=== PATIENT | female | born 1990 | race Caucasian/White ===

== ENCOUNTER 2019-10-01 10:35 | Emergency (ER) | payer OTHER ==
[2019-10-01 10:41] VITALS: BP 133/83; PULSE 81; RESP 18; TEMP 98
[2019-10-01] MEDS ORDERED: CLINDAMYCIN 150 MG CAP PO STA (10:55)
[2019-10-01] MEDS ORDERED: IBUPROFEN 600 MG STARTER PACK 4 TAB BTL PO STA (10:55)
--- NOTE | 2019-10-01 11:02 | ED ---
Headache HPI - General Chief Complaint: Headache Stated Complaint: facial swelling Time Seen by Provider: 10/01/19 10:44 Source: RN notes reviewed, old records reviewed Mode of arrival: ambulatory Limitations: no limitations - History of Present Illness Initial Comments: This Patient is a pleasant 29-year-old female presents emergency department today with onset of left-sided facial swelling likely from an infection from her upper left incisor. She states that she has a mild headache with this as well. Patient reports that she's had a broken tooth for many years and woke up with increased pain today and noticed this swelling to the left cheek. She denies any trismus. She denies any foul taste or drainage in the mouth at this time. Patient states that she's had no history of diabetes or any resistant infections. She does have a history of ALLERGY to penicillin. Patient states that she has had no visual changes. - Related Data Previous Rx's Medication Instructions Recorded Clindamycin HCl 300 mg PO Q6H #40 cap 10/01/19 Allergies Allergy/AdvReac Type Severity Reaction Status Date / Time Penicillins Allergy Rash/Hives Verified 10/01/19 10:41 Review of Systems ROS Statement: Those systems with pertinent positive or pertinent negative responses have been documented in the HPI. ROS Other: All systems not noted in ROS Statement are negative. Past Medical History Past Medical History: No Reported History History of Any Multi-Drug Resistant Organisms: None Reported Past Surgical History: Appendectomy Past Psychological History: No Psychological Hx Reported Smoking Status: Never smoker Past Alcohol Use History: None Reported Past Drug Use History: None Reported General Exam - General Exam Comments Initial Comments: 29-year-old female. Alert and oriented. Limitations: no limitations General appearance: alert, in no apparent distress Head exam: Present: atraumatic, normocephalic, normal inspection Eye exam: Present: normal appearance, PERRL, EOMI. Absent: scleral icterus, conjunctival injection, periorbital swelling ENT exam: Present: normal exam, TM's normal bilaterally, other (Patient has broken tooth #12 and 13. Evidence of erythema around the gumline. No palpable abscess, and this time.). Absent: normal oropharynx Neck exam: Present: normal inspection. Absent: tenderness, meningismus, lymphadenopathy Respiratory exam: Present: normal lung sounds bilaterally. Absent: respiratory distress, wheezes, rales, rhonchi, stridor Cardiovascular Exam: Present: regular rate, normal rhythm, normal heart sounds. Absent: systolic murmur, diastolic murmur, rubs, gallop, clicks GI/Abdominal exam: Present: soft, normal bowel sounds. Absent: distended, tenderness, guarding, rebound, rigid Back exam: Present: normal inspection Neurological exam: Present: alert, oriented X3, CN II-XII intact Psychiatric exam: Present: normal affect, normal mood Skin exam: Present: warm, dry, intact, normal color. Absent: rash Course Vital Signs 10/01/19 10:36 Temperature 98.0 F Pulse Rate 81 Respiratory 18 Rate Blood Pressure 133/83 O2 Sat by Pulse 99 Oximetry Medical Decision Making - Medical Decision Making Patient is a 29-year-old female who presents emergency department today for left cheek swelling and pain likely setting from infection from left upper tooth infection. Patient reports that she has a broken tooth for 2 years and woke up today with swelling. She does have some tenderness to palpation of the left maxillary area. She does have broken tooth #13 and 14. There is no drainable abscess at this time. Discussed starting the Patient on clindamycin, and temperature medication. I advised Patient on close follow-up with dentist. Given a referral for dental clinic. Disposition Clinical Impression: Dental infection Disposition: HOME SELF-CARE Condition: Good Instructions (If sedation given, give patient instructions): Dental Abscess (ED) Additional Instructions: [facility] [place] [address] [phone] (existing clients only) For new clients: [phone] 1st consult: $50 (includes Xrays) Usually 30% less then private dentist for visits after. [employer] Have to pay $50 for Xrays anmd rest is covered. [phone] Prescriptions: Clindamycin HCl 300 mg PO Q6H #40 cap Is patient prescribed a controlled substance at d/c from ED?: No Referrals: None,Stated [Primary Care Provider] - 1-2 days Time of Disposition: 11:00
== END 2019-10-01 11:20 | disposition home or self-care (01) ==
LOC: EC 10:35
DX: K04.7 Periapical abscess without sinus (principal); K03.81 Cracked tooth; Z88.0 Allergy status to penicillin
CPT/HCPCS: 99284

== ENCOUNTER 2019-10-20 10:33 | Emergency (ER) | payer OTHER ==
[2019-10-20 10:39] VITALS: BP 149/70; PULSE 97; RESP 18; TEMP 98.9
[2019-10-20] MEDS ORDERED: CLINDAMYCIN 150 MG CAP PO STA (10:52)
--- NOTE | 2019-10-20 10:54 | ED ---
General Adult HPI - General Chief complaint: Dental/Oral Stated complaint: tooth abscess Time Seen by Provider: 10/20/19 10:42 Source: patient, RN notes reviewed Mode of arrival: ambulatory Limitations: no limitations - History of Present Illness Initial comments: 29-year-old female presents to the emergency department for dental pain and facial swelling. Patient states that about 3 weeks ago she was seen here in the emergency room and started on antibiotics for dental pain. Patient states she did not follow up with her dentist as discussed. The patient took antibiotics and symptoms went away. However when she woke up today she had facial swelling again. Patient presents requesting antibiotics. She denies fevers or chills. Denies trismus. Denies sublingual edema. Denies neck stiffness.Patient has no other complaints at this time including shortness of breath, chest pain, abdominal pain, nausea or vomiting, headache, or visual changes. - Related Data Previous Rx's Medication Instructions Recorded Clindamycin HCl 300 mg PO Q6H #40 cap 10/01/19 Clindamycin [Cleocin] 450 mg PO Q8H 7 Days #63 cap 10/20/19 Allergies Allergy/AdvReac Type Severity Reaction Status Date / Time Penicillins Allergy Rash/Hives Verified 10/20/19 10:39 Review of Systems ROS Statement: Those systems with pertinent positive or pertinent negative responses have been documented in the HPI. ROS Other: All systems not noted in ROS Statement are negative. Past Medical History Past Medical History: No Reported History History of Any Multi-Drug Resistant Organisms: None Reported Past Surgical History: Appendectomy Past Psychological History: No Psychological Hx Reported Smoking Status: Never smoker Past Alcohol Use History: None Reported Past Drug Use History: None Reported General Exam Limitations: no limitations General appearance: alert, in no apparent distress Head exam: Present: atraumatic, normocephalic, normal inspection Eye exam: Present: normal appearance, PERRL, EOMI. Absent: scleral icterus, conjunctival injection, periorbital swelling ENT exam: Present: normal exam, mucous membranes moist, TM's normal bilaterally, normal external ear exam, other (Patient does have minimal facial edema on the left side of the face along the maxillary area). Absent: normal oropharynx (Patient has fractured tooth 12 with tendenress with palpation of tongue blade. There is no abscess with direct visualization or palpation along the gumline. No sublingual edema. No trismus.) Neck exam: Present: normal inspection, full ROM. Absent: tenderness, meningismus, lymphadenopathy Respiratory exam: Present: normal lung sounds bilaterally. Absent: respiratory distress, wheezes, rales, rhonchi, stridor Cardiovascular Exam: Present: regular rate, normal rhythm, normal heart sounds. Absent: systolic murmur, diastolic murmur, rubs, gallop, clicks Neurological exam: Present: alert Course Vital Signs 10/20/19 10:36 Temperature 98.9 F Pulse Rate 97 Respiratory 18 Rate Blood Pressure 149/70 O2 Sat by Pulse 98 Oximetry Medical Decision Making - Medical Decision Making Patient was again treated with clindamycin given her ALLERGY to penicillins however I discussed that we cannot keep putting her on this antibiotic as it can be hard on her stomach. Discussed that patient needs to follow-up with her dentist, this is imperative. Discussed to return here she gets worsening symptoms such as fevers or worsening edema. Disposition Clinical Impression: Dental infection Disposition: HOME SELF-CARE Condition: Good Instructions (If sedation given, give patient instructions): Dental Abscess (ED) Additional Instructions: Please take antibiotic as directed. Take Motrin and Tylenol for pain. Follow- up with dentist as soon as possible. Return here to the emergency room for any worsening symptoms such as worsening swelling or fevers. [facility] [id number] (existing clients only) New clients: [phone] 1st consult: $50 (includes XRs) Usually 30% less than private dentist for visits after. [employer] Have to pay $50 for Xrays and rest is covered [phone] Prescriptions: Clindamycin [Cleocin] 450 mg PO Q8H 7 Days #63 cap Is patient prescribed a controlled substance at d/c from ED?: No Referrals: None,Stated [Primary Care Provider] - 1-2 days Time of Disposition: 10:52
== END 2019-10-20 11:01 | disposition home or self-care (01) ==
LOC: EC 10:33
DX: K04.7 Periapical abscess without sinus (principal); S02.5XXA Fracture of tooth (traumatic), initial encounter for closed fracture; Z88.0 Allergy status to penicillin; X58.XXXA Exposure to other specified factors, initial encounter
CPT/HCPCS: 99282

== ENCOUNTER 2020-03-01 22:01 | Observation (INO) | payer OTHER ==
[2020-03-01] MEDS ORDERED: SODIUM CHLORIDE 0.9% 1,000 ML IV STA ×2 (22:22)
[2020-03-01] MEDS ORDERED: SODIUM CHLORIDE 0.9% 500 ML 500 ML IV STA (22:22)
[2020-03-01] MEDS ORDERED: KETOROLAC 15 MG/ML 1 ML VIAL IVP STA (22:23)
[2020-03-01] MEDS ORDERED: MORPHINE SULFATE 4 MG/ML SYRINGE IVP STA (22:36)
[2020-03-01 23:16] LABS: Basophils % (A) 0 %; Eosinophils % (A) 0 %; HCT 38.4 % (34.0-46.0); HGB 12.8 gm/dL (11.4-16.0); Lymphocytes # (A) 0.8 k/uL (1.0-4.8); Lymphocytes % (A) 4 %; MCHC 33.4 g/dL (31.0-37.0); MCV 89.8 fL (80.0-100.0); Mean Platelet Volume 7.3; Monocytes # (A) 0.3 k/uL (0-1.0); Monocytes % (A) 2 %; Neutrophils # (A) 19.3 k/uL (1.3-7.7); Neutrophils % (A) 94 %; Platelet Count 193 k/uL (150-450); RBC 4.28 m/uL (3.80-5.40); RDW 11.7 % (11.5-15.5); WBC 20.5 k/uL (3.8-10.6)
[2020-03-01 23:33] LABS: ALT 10 U/L (4-34); AST 18 U/L (14-36); African American GFR (CKD) >90 (>60 ml/min/1.73 sqM); Albumin 4.1 g/dL (3.5-5.0); Alkaline Phosphatase 70 U/L (38-126); Anion Gap 9 mmol/L; Blood Urea Nitrogen 13 mg/dL (7-17); Calcium 9.4 mg/dL (8.4-10.2); Carbon Dioxide 20 mmol/L (22-30); Chloride 107 mmol/L (98-107); Glucose 101 mg/dL (74-99); Magnesium 1.8 mg/dL (1.6-2.3); Non-African American GFR(CKD) >90 (>60 ml/min/1.73 sqM); Phosphorus 2.8 mg/dL (2.5-4.5); Potassium 3.8 mmol/L (3.5-5.1); Sodium 136 mmol/L (137-145); Total Bilirubin 1.6 mg/dL (0.2-1.3); Total Protein 7.3 g/dL (6.3-8.2)
--- NOTE | 2020-03-01 23:40 | ED ---
Abdominal Pain HPI - General Chief Complaint: Abdominal Pain Stated Complaint: Abd Pain, Bladder infection Time Seen by Provider: 03/01/20 22:10 Source: patient, RN notes reviewed, old records reviewed Mode of arrival: ambulatory Limitations: no limitations - History of Present Illness Initial Comments: this is a 29-year-old female DEL with fever and gross abdominal pain epigastric suprapubic abdominal pain periumbilical abdominal pain began diffuse without diarrhea. Patient was seen and diagnosed with UTI yesterday negative for coronavirus still having persistent fevers worsening abdominal pain today. No travel history or known sick contacts, appendix has been removed MD Complaint: abdominal pain -: days(s) Location: diffuse, epigastric, suprapubic Radiation: epigastric, suprapubic Migration to: no migration Severity: moderate Severity scale (1-10): 4 Quality: aching Consistency: constant Improves With: nothing Worsens With: nothing Context: sick contacts Associated Symptoms: nausea - Related Data Home Medications Medication Instructions Recorded Confirmed Ibuprofen [Motrin Ib] 400 mg PO ONCE PRN 03/01/20 03/01/20 Nitrofurantoin Macrocrystal 100 mg PO Q12H 03/01/20 03/01/20 [Nitrofurantoin] Allergies Allergy/AdvReac Type Severity Reaction Status Date / Time Penicillins Allergy Rash/Hives Verified 03/01/20 23:12 Review of Systems ROS Statement: Those systems with pertinent positive or pertinent negative responses have been documented in the HPI. ROS Other: All systems not noted in ROS Statement are negative. Past Medical History Past Medical History: No Reported History History of Any Multi-Drug Resistant Organisms: None Reported Past Surgical History: Appendectomy Past Psychological History: No Psychological Hx Reported Past Alcohol Use History: None Reported Past Drug Use History: None Reported General Exam Limitations: no limitations General appearance: alert, in no apparent distress, anxious Head exam: Present: atraumatic, normocephalic, normal inspection Eye exam: Present: normal appearance, PERRL, EOMI. Absent: scleral icterus, conjunctival injection, periorbital swelling ENT exam: Present: normal exam, mucous membranes moist Neck exam: Present: normal inspection. Absent: tenderness, meningismus, lymphad enopathy Respiratory exam: Present: normal lung sounds bilaterally. Absent: respiratory distress, wheezes, rales, rhonchi, stridor Cardiovascular Exam: Present: normal rhythm, tachycardia, normal heart sounds. Absent: systolic murmur, diastolic murmur, rubs, gallop, clicks GI/Abdominal exam: Present: soft, tenderness, guarding, normal bowel sounds. Absent: distended, rebound, rigid Extremities exam: Present: normal inspection, full ROM, normal capillary refill. Absent: tenderness, pedal edema, joint swelling, calf tenderness Back exam: Present: normal inspection Neurological exam: Present: alert, oriented X3, CN II-XII intact Psychiatric exam: Present: normal affect, normal mood Skin exam: Present: warm, dry, intact, normal color. Absent: rash Course Vital Signs 03/01/20 03/01/20 22:03 23:45 Temperature 99.2 F 101.2 F H Pulse Rate 118 H 92 Respiratory 18 16 Rate Blood Pressure 135/85 108/58 O2 Sat by Pulse 99 98 Oximetry - Reevaluation(s) Reevaluation #1: 03/01/20 23:40 medical records reviewed Reevaluation #2: 03/02/20 02:12 patient reevaluated still having escalating fever with abdominal pain Reevaluation #3: 03/02/20 02:12 atient informed results and questions answered Reevaluation #4: 03/02/20 02:12 patient without shortness of breath - Consultations Consultation #1: spoke with [facility] agree to admit this patient Medical Decision Making - Medical Decision Making 29 female DF for evaluation patient is persistent and significant in the ER with abdominal pain. Suspect possibly underlying coronavirus but she could've possibly urinary tract infection as was treated for urinary tract infection patient - Lab Data Result diagrams: 03/01/20 22:53 03/01/20 22:53 Lab Results 03/01/20 03/01/20 03/01/20 Range/Units 22:53 22:53 22:53 WBC 20.5 H (3.8-10.6) k/uL RBC 4.28 (3.80-5.40) m/uL Hgb 12.8 (11.4-16.0) gm/dL Hct 38.4 (34.0-46.0) % MCV 89.8 (80.0-100.0) fL MCH 30.0 (25.0-35.0) pg MCHC 33.4 (31.0-37.0) g/dL RDW 11.7 (11.5-15.5) % Plt Count 193 (150-450) k/uL MPV 7.3 Neutrophils % 94 % Lymphocytes % 4 % Monocytes % 2 % Eosinophils % 0 % Basophils % 0 % Neutrophils # 19.3 H (1.3-7.7) k/uL Lymphocytes # 0.8 L (1.0-4.8) k/uL Monocytes # 0.3 (0-1.0) k/uL Eosinophils # 0.0 (0-0.7) k/uL Basophils # 0.0 (0-0.2) k/uL Sodium 136 L (137-145) mmol/L Potassium 3.8 (3.5-5.1) mmol/L Chloride 107 (98-107) mmol/L Carbon Dioxide 20 L (22-30) mmol/L Anion Gap 9 mmol/L BUN 13 (7-17) mg/dL Creatinine 0.67 (0.52-1.04) mg/dL Est GFR (CKD-EPI)AfAm >90 (>60 ml/min/1.73 sqM) Est GFR (CKD-EPI)NonAf >90 (>60 ml/min/1.73 sqM) Glucose 101 H (74-99) mg/dL Calcium 9.4 (8.4-10.2) mg/dL Phosphorus 2.8 (2.5-4.5) mg/dL Magnesium 1.8 (1.6-2.3) mg/dL Total Bilirubin 1.6 H (0.2-1.3) mg/dL AST 18 (14-36) U/L ALT 10 (4-34) U/L Alkaline Phosphatase 70 (38-126) U/L Lactate Dehydrogenase (313-618) U/L C-Reactive Protein (<10.0) mg/L Total Protein 7.3 (6.3-8.2) g/dL Albumin 4.1 (3.5-5.0) g/dL Lipase (23-300) U/L Urine Color Urine Appearance (Clear) Urine pH (5.0-8.0) Ur Specific [place] (1.001-1.035) Urine Protein (Negative) Urine Glucose (UA) (Negative) Urine Ketones (Negative) Urine Blood (Negative) Urine Nitrite (Negative) Urine Bilirubin (Negative) Urine Urobilinogen (<2.0) mg/dL Ur Leukocyte Esterase (Negative) Urine RBC (0-5) /hpf Urine WBC (0-5) /hpf Ur Squamous Epith Cells (0-4) /hpf Amorphous Sediment (None) /hpf Urine Bacteria (None) /hpf Urine Mucus (None) /hpf Urine HCG, Qual (Not Detectd) Coronavirus (PCR) Not Detected (Not Detectd) 03/01/20 03/01/20 03/01/20 Range/Units 22:53 23:53 23:53 WBC (3.8-10.6) k/uL RBC (3.80-5.40) m/uL Hgb (11.4-16.0) gm/dL Hct (34.0-46.0) % MCV (80.0-100.0) fL MCH (25.0-35.0) pg MCHC (31.0-37.0) g/dL RDW (11.5-15.5) % Plt Count (150-450) k/uL MPV Neutrophils % % Lymphocytes % % Monocytes % % Eosinophils % % Basophils % % Neutrophils # (1.3-7.7) k/uL Lymphocytes # (1.0-4.8) k/uL Monocytes # (0-1.0) k/uL Eosinophils # (0-0.7) k/uL Basophils # (0-0.2) k/uL Sodium (137-145) mmol/L Potassium (3.5-5.1) mmol/L Chloride (98-107) mmol/L Carbon Dioxide (22-30) mmol/L Anion Gap mmol/L BUN (7-17) mg/dL Creatinine (0.52-1.04) mg/dL Est GFR (CKD-EPI)AfAm (>60 ml/min/1.73 sqM) Est GFR (CKD-EPI)NonAf (>60 ml/min/1.73 sqM) Glucose (74-99) mg/dL Calcium (8.4-10.2) mg/dL Phosphorus (2.5-4.5) mg/dL Magnesium (1.6-2.3) mg/dL Total Bilirubin (0.2-1.3) mg/dL AST (14-36) U/L ALT (4-34) U/L Alkaline Phosphatase (38-126) U/L Lactate Dehydrogenase 576 (313-618) U/L C-Reactive Protein 169.0 H (<10.0) mg/L Total Protein (6.3-8.2) g/dL Albumin (3.5-5.0) g/dL Lipase (23-300) U/L Urine Color Yellow Urine Appearance Cloudy H (Clear) Urine pH 6.0 (5.0-8.0) Ur Specific [place] 1.030 (1.001-1.035) Urine Protein 1+ H (Negative) Urine Glucose (UA) Negative (Negative) Urine Ketones 2+ H (Negative) Urine Blood Trace H (Negative) Urine Nitrite Negative (Negative) Urine Bilirubin Negative (Negative) Urine Urobilinogen <2.0 (<2.0) mg/dL Ur Leukocyte Esterase Moderate H (Negative) Urine RBC 2 (0-5) /hpf Urine WBC 16 H (0-5) /hpf Ur Squamous Epith Cells 2 (0-4) /hpf Amorphous Sediment Rare H (None) /hpf Urine Bacteria Rare H (None) /hpf Urine Mucus Moderate H (None) /hpf Urine HCG, Qual Not Detected (Not Detectd) Coronavirus (PCR) (Not Detectd) 03/01/20 Range/Units 23:53 WBC (3.8-10.6) k/uL RBC (3.80-5.40) m/uL Hgb (11.4-16.0) gm/dL Hct (34.0-46.0) % MCV (80.0-100.0) fL MCH (25.0-35.0) pg MCHC (31.0-37.0) g/dL RDW (11.5-15.5) % Plt Count (150-450) k/uL MPV Neutrophils % % Lymphocytes % % Monocytes % % Eosinophils % % Basophils % % Neutrophils # (1.3-7.7) k/uL Lymphocytes # (1.0-4.8) k/uL Monocytes # (0-1.0) k/uL Eosinophils # (0-0.7) k/uL Basophils # (0-0.2) k/uL Sodium (137-145) mmol/L Potassium (3.5-5.1) mmol/L Chloride (98-107) mmol/L Carbon Dioxide (22-30) mmol/L Anion Gap mmol/L BUN (7-17) mg/dL Creatinine (0.52-1.04) mg/dL Est GFR (CKD-EPI)AfAm (>60 ml/min/1.73 sqM) Est GFR (CKD-EPI)NonAf (>60 ml/min/1.73 sqM) Glucose (74-99) mg/dL Calcium (8.4-10.2) mg/dL Phosphorus (2.5-4.5) mg/dL Magnesium (1.6-2.3) mg/dL Total Bilirubin (0.2-1.3) mg/dL AST (14-36) U/L ALT (4-34) U/L Alkaline Phosphatase (38-126) U/L Lactate Dehydrogenase (313-618) U/L C-Reactive Protein (<10.0) mg/L Total Protein (6.3-8.2) g/dL Albumin (3.5-5.0) g/dL Lipase 13 L (23-300) U/L Urine Color Urine Appearance (Clear) Urine pH (5.0-8.0) Ur Specific [place] (1.001-1.035) Urine Protein (Negative) Urine Glucose (UA) (Negative) Urine Ketones (Negative) Urine Blood (Negative) Urine Nitrite (Negative) Urine Bilirubin (Negative) Urine Urobilinogen (<2.0) mg/dL Ur Leukocyte Esterase (Negative) Urine RBC (0-5) /hpf Urine WBC (0-5) /hpf Ur Squamous Epith Cells (0-4) /hpf Amorphous Sediment (None) /hpf Urine Bacteria (None) /hpf Urine Mucus (None) /hpf Urine HCG, Qual (Not Detectd) Coronavirus (PCR) (Not Detectd) - Radiology Data Radiology results: report reviewed (CT head and pelvis is negative for acute disease), image reviewed Disposition Clinical Impression: Abdominal pain, Fever Narrative: ro COVID Disposition: ADMITTED IP TO THIS [facility] Condition: Fair Is patient prescribed a controlled substance at d/c from ED?: No Referrals: None,Stated [Primary Care Provider] - 1-2 days
[2020-03-01] MEDS ORDERED: ONDANSETRON 4 MG/2 ML VIAL IVP STA (23:50)
[2020-03-02 00:09] LABS: Amorphous Sediment,Urine Rare /hpf; Appearance,Urine Cloudy (Clear); Bacteria,Urine Rare /hpf; Bilirubin,Urine Negative (Negative); Blood,Urine Trace (Negative); Color,Urine Yellow; Glucose,Urine (UA) Negative (Negative); Ketones,Urine 2+ (Negative); Leukocyte Esterase,Urine Moderate (Negative); Mucus,Urine Moderate /hpf; Nitrite,Urine Negative (Negative); Protein,Urine 1+ (Negative); RBC,Urine 2 /hpf (0-5); Squamous Epithelial Cell,Urine 2 /hpf (0-4); Urobilinogen,Urine <2.0 mg/dL (<2.0); WBC,Urine 16 /hpf (0-5)
[2020-03-02] MEDS ORDERED: ACETAMINOPHEN TAB 500 MG TAB PO STA (00:09)
[2020-03-02] MEDS ORDERED: MORPHINE SULFATE 4 MG/ML SYRINGE IVP STA ×2 (01:30→04:23)
[2020-03-02] MEDS ORDERED: SODIUM CHLORIDE 0.9% 1,000 ML IV STA (01:31)
--- NOTE | 2020-03-02 01:54 | CT ---
EXAM: CT Abdomen and Pelvis With Intravenous Contrast CLINICAL HISTORY: abd pain with n+v. TECHNIQUE: Axial computed tomography images of the abdomen and pelvis with intravenous contrast. CTDI is 37.17 mGy and DLP is 1688.2 mGy-cm. This CT exam was performed using one or more of the following dose reduction techniques: automated exposure control, adjustment of the mA and/or kV according to patient size, and/or use of iterative reconstruction technique. COMPARISON: No relevant prior studies available. FINDINGS: Lung bases: Unremarkable. No mass. No consolidation. ABDOMEN: Liver: Unremarkable. No mass. Gallbladder and bile ducts: Unremarkable. No calcified stones. No ductal dilation. Pancreas: Unremarkable. No mass. No ductal dilation. Spleen: Unremarkable. No splenomegaly. Adrenals: Unremarkable. No mass. Kidneys and ureters: 1 mm nonobstructing lower pole left renal stone on series 201 image 37. Stomach and bowel: Unremarkable. No obstruction. No mucosal thickening. PELVIS: Appendix: Appendectomy sutures. Bladder: Unremarkable. No mass. Reproductive: Unremarkable as visualized. ABDOMEN and PELVIS: Intraperitoneal space: Unremarkable. No free air. No significant fluid collection. Bones/joints: No acute fracture. No dislocation. Soft tissues: Unremarkable. Vasculature: Unremarkable. No abdominal aortic aneurysm. Lymph nodes: Unremarkable. No enlarged lymph nodes. IMPRESSION: No acute findings 1 mm nonobstructing left renal stone
[2020-03-02] MEDS ORDERED: ACETAMINOPHEN TAB 325 MG TAB PO PRN (02:02)
[2020-03-02] MEDS ORDERED: ALBUTEROL NEBULIZED 2.5 MG/3 ML INHALATION PRN (02:02)
[2020-03-02 02:30] LABS: Magnesium 1.8 mg/dL (1.6-2.3)
--- NOTE | 2020-03-02 02:45 | XR ---
EXAM: XR Chest, 1 View CLINICAL HISTORY: ITS.REASON XR Reason: Suspected COVID-19 pneumonia TECHNIQUE: Frontal view of the chest. COMPARISON: No relevant prior studies available. FINDINGS: Lungs: Mild artifact from breast tissue over the lower lungs. No definite acute infiltrate identified. Pleural space: Unremarkable. No pneumothorax. Heart: Unremarkable. No cardiomegaly. Mediastinum: Unremarkable. Bones/joints: Unremarkable. IMPRESSION: Mild artifact from breast tissue over the lower lungs. No definite acute infiltrate identified.
[2020-03-02] MEDS: KETOROLAC 15 MG/ML 1 ML VIAL IVP SCH ×4 (06:13→23:25)
[2020-03-02] MEDS: ENOXAPARIN 40 MG/0.4 ML SYRINGE SQ SCH (07:56)
[2020-03-02 09:39] LABS: Ferritin 87.9 ng/mL (10.0-291.0)
[2020-03-02] MEDS ORDERED: HYDROcodone/APAP 7.5-325MG 1 EACH TAB PO PRN (14:54)
--- NOTE | 2020-03-02 15:52 | P.HPIM ---
History of Present Illness 29-year-old the pleasant female came in with the complaints of pressure in the suprapubic area which is worsened pretty much by everything with movement with food. Patient pain was severe much better now. Patient was seen in urgent care and patient was told she has urinary tract infection and was started on nitrofurantoin patient does have fevers chills. Patient had CT of the abdomen which showed nephrolithiasis on the side with a 1 mm stone which is nonobstructive. Patient did complain of dysuria today morning. Patient urine is bit abnormal although patient is partially treated with nitrofurantoin she never had UTIs in the past and did not have any previous urine cultures from the past. Patient also had a fever and diarrhea. Review of Systems REVIEW OF SYSTEMS: CONSTITUTIONAL: As mentioned in HPI HEENT: No recent visual problems or hearing problems. Denied any sore throat. CARDIOVASCULAR: No chest pain, orthopnea, PND, no palpitations, no syncope. PULMONARY: No shortness of breath, no cough, no hemoptysis. GASTROINTESTINAL: As mentioned in HPI NEUROLOGICAL: No headaches, no weakness, no numbness. HEMATOLOGICAL: Denies any bleeding or petechiae. GENITOURINARY: Denies any burning micturition, frequency, or urgency. MUSCULOSKELETAL/RHEUMATOLOGICAL: Denies any joint pain, swelling, or any muscle pain. ENDOCRINE: Denies any polyuria or polydipsia. The rest of the 14-point review of systems is negative. Past Medical History Past Medical History: No Reported History History of Any Multi-Drug Resistant Organisms: None Reported Past Surgical History: Appendectomy Past Anesthesia/Blood Transfusion Reactions: No Reported Reaction Past Psychological History: No Psychological Hx Reported Smoking Status: Never smoker Past Alcohol Use History: None Reported Past Drug Use History: None Reported Medications and Allergies Home Medications Medication Instructions Recorded Confirmed Type Ibuprofen [Motrin Ib] 400 mg PO ONCE PRN 03/01/20 03/01/20 History Nitrofurantoin Macrocrystal 100 mg PO Q12H 03/01/20 03/01/20 History [Nitrofurantoin] Allergies Allergy/AdvReac Type Severity Reaction Status Date / Time Penicillins Allergy Rash/Hives Verified 03/01/20 23:12 Physical Exam Vitals: Vital Signs Temp Pulse Pulse Resp BP BP Pulse Ox 03/02/20 14:32 97.9 F 98 19 93/57 98 03/02/20 08:12 96 03/02/20 07:00 98.2 F 66 16 89/51 98 03/02/20 04:31 98.1 F 82 18 96/60 99 03/02/20 03:20 98.7 F 91 18 121/72 97 03/02/20 02:20 98.9 F 95 18 116/68 97 03/02/20 01:00 100 F H 92 16 112/63 97 03/01/20 23:45 101.2 F H 92 16 108/58 98 03/01/20 22:03 99.2 F 118 H 18 135/85 99 Intake and Output 03/02/20 03/02/20 03/02/20 06:59 14:59 22:59 Other: # Voids 1 3 Weight 106.594 kg PHYSICAL EXAMINATION: GENERAL: The patient is alert and oriented x3, not in any acute distress. Well developed, well nourished. HEENT: Pupils are round and equally reacting to light. EOMI. No scleral icterus. No conjunctival pallor. Normocephalic, atraumatic. No pharyngeal erythema. No thyromegaly. CARDIOVASCULAR: S1 and S2 present. No murmurs, rubs, or gallops. PULMONARY: Chest is clear to auscultation, no wheezing or crackles. ABDOMEN: Soft, appropriately tenderness with some redness in the skin folds, nondistended, normoactive bowel sounds. No palpable organomegaly. MUSCULOSKELETAL: No joint swelling or deformity. EXTREMITIES: No cyanosis, clubbing, or pedal edema. NEUROLOGICAL: Gross neurological examination did not reveal any focal deficits. SKIN: No rashes. Results CBC & Chem 7: 03/01/20 22:53 03/01/20 22:53 Labs: Abnormal Lab Results - Last 24 Hours (Table) 03/01/20 03/01/20 03/01/20 Range/Units 22:53 22:53 22:53 WBC 20.5 H (3.8-10.6) k/uL Neutrophils # 19.3 H (1.3-7.7) k/uL Lymphocytes # 0.8 L (1.0-4.8) k/uL Sodium 136 L (137-145) mmol/L Carbon Dioxide 20 L (22-30) mmol/L Glucose 101 H (74-99) mg/dL Total Bilirubin 1.6 H (0.2-1.3) mg/dL C-Reactive Protein 169.0 H (<10.0) mg/L Lipase (23-300) U/L Urine Appearance (Clear) Urine Protein (Negative) Urine Ketones (Negative) Urine Blood (Negative) Ur Leukocyte Esterase (Negative) Urine WBC (0-5) /hpf Amorphous Sediment (None) /hpf Urine Bacteria (None) /hpf Urine Mucus (None) /hpf 03/01/20 03/01/20 Range/Units 23:53 23:53 WBC (3.8-10.6) k/uL Neutrophils # (1.3-7.7) k/uL Lymphocytes # (1.0-4.8) k/uL Sodium (137-145) mmol/L Carbon Dioxide (22-30) mmol/L Glucose (74-99) mg/dL Total Bilirubin (0.2-1.3) mg/dL C-Reactive Protein (<10.0) mg/L Lipase 13 L (23-300) U/L Urine Appearance Cloudy H (Clear) Urine Protein 1+ H (Negative) Urine Ketones 2+ H (Negative) Urine Blood Trace H (Negative) Ur Leukocyte Esterase Moderate H (Negative) Urine WBC 16 H (0-5) /hpf Amorphous Sediment Rare H (None) /hpf Urine Bacteria Rare H (None) /hpf Urine Mucus Moderate H (None) /hpf Microbiology - Last 24 Hours (Table) 03/01/20 23:53 Urine Culture - Preliminary Urine,Clean Catch Thrombosis Risk Factor Assmnt - Choose All That Apply Any of the Below Risk Factors Present?: No Other Risk Factors: No Other congenital or acquired thrombophilia - If yes, enter type in comment: No Thrombosis Risk Factor Assessment Level: Very Low Risk Assessment and Plan Plan: -Sepsis: Secondary to urinary tract infection, continue with 2 g of Rocephin continue with IV fluids -Nephrolithiasis 1 mm did not require any surgical intervention. -diarrhea secondary to infection -Ruled out Covid -Leukocytosis due to assessment 1 -DVT prophylaxis early ambulation -GI prophylaxis with Protonix
[2020-03-02] MEDS: NYSTATIN 100,000 UNIT/GM POWD 15 GM TOPICAL SCH ×2 (16:03→19:21)
[2020-03-02] MEDS: PANTOPRAZOLE 40 MG/10 ML VIAL IVP SCH (16:03)
[2020-03-02] MEDS: SODIUM CHLORIDE 0.9% 1,000 ML IV SCH ×2 (16:05→23:26)
--- NOTE | 2020-03-03 02:42 | CONS ---
CONSULTATION DATE OF SERVICE: 03/02/2020. REASON FOR CONSULTATION: Pyelonephritis, UTI. HISTORY OF PRESENT ILLNESS: The patient is a 29-year-old female who presented to the ER with chief complaints of lower abdominal pain. The patient's pain has been going on for the last few days. Patient describes the pain to be more of a sharp and dull aching with intensity almost 6 to 7 out of 10. The patient did have slight burning and frequency. The patient was seen in Urgent Care and was diagnosed UTI, started on nitrofurantoin. However, the patient did not have any improvement. On arrival to the ER, the patient did have a fever of 101.2 degrees Fahrenheit. The patient did have white count of 20.5 with a left shift. She did have a positive UA with moderate leukocyte esterase, 16 WBCs. Neri PCR was negative. The patient did have a CT of abdomen and pelvis with no acute findings. There was a 1 mm nonobstructing left renal stone. The patient was started on Rocephin. Infectious Disease was consulted for further management of antibiotic therapy. REVIEW OF SYSTEMS: Positive points have been mentioned in HPI. Rest of the systems negative. PAST MEDICAL HISTORY: No major illnesses. PAST SURGICAL HISTORY: Appendectomy. SOCIAL HISTORY: No history of smoking, drinking or drug use. FAMILY HISTORY: No pertinent findings noticed. ALLERGIES: Allergies to PENICILLIN, tolerated Rocephin without any problem. MEDICATIONS: Medications include the patient is currently on Tylenol, [place], Rocephin 2 grams daily. She is on Lovenox Toradol, Protonix, and IV fluid. PHYSICAL EXAMINATION: Blood pressure is 102/66, pulse of 59, temperature 98. She is 99% on room air. General description is a middle-aged female lying in bed in no distress. No tachypnea or accessory muscle of respiration use. HEENT: Examination shows no pallor or scleral icterus. Oral mucous membranes moist. No pharyngeal erythema or thrush. NECK: Trachea central. No thyromegaly. LUNGS: Unlabored breathing, clear to auscultation anteriorly. No wheeze or crackle. HEART: S1, S2. Regular rate and rhythm. No added sounds. ABDOMEN: Soft, no tenderness. No guarding or rigidity. EXTREMITIES: No edema of feet. SKIN EXAMINATION: No rash or mass palpable. NEUROLOGICAL: The patient is awake, alert and oriented x3. Mood and affect normal. LABS: Hemoglobin is 12.8, white count 20.5, BUN of 13, creatinine 0.67. Liver enzymes are normal. CRP elevated. Urine is positive. CT of abdomen and pelvis was negative for any acute abnormality. DIAGNOSTIC IMPRESSION: 1. The patient admitted to the hospital with sepsis in this patient who did have fever of 101.2 degrees Fahrenheit. The patient was tachycardiac, did have elevated white count source likely urinary with urinary tract infection, possible pyelonephritis, likely from enteric gram-negative pathogen. 2. Patient with PENICILLIN allergy that will limit the number of antibiotics safe to use. PLAN: 1. Rocephin 2 grams daily. 2. IV fluid. 3. We will follow on clinical condition and culture to further adjust medication if needed. Thank you for this consultation. Will follow this patient along with you. BECCA / STACIEN: [id number] /
[2020-03-03] MEDS: KETOROLAC 15 MG/ML 1 ML VIAL IVP SCH ×4 (06:08→23:48)
[2020-03-03 07:01] LABS: HCT 34.3 % (34.0-46.0); HGB 11.3 gm/dL (11.4-16.0); MCH 30.8 pg (25.0-35.0); MCV 93.3 fL (80.0-100.0); Mean Platelet Volume 7.7; Platelet Count 179 k/uL (150-450); RBC 3.68 m/uL (3.80-5.40); RDW 11.9 % (11.5-15.5); WBC 9.2 k/uL (3.8-10.6)
[2020-03-03] MEDS: ENOXAPARIN 40 MG/0.4 ML SYRINGE SQ SCH (07:32)
[2020-03-03] MEDS: NYSTATIN 100,000 UNIT/GM POWD 15 GM TOPICAL SCH ×3 (07:32→20:09)
[2020-03-03] MEDS: PANTOPRAZOLE 40 MG/10 ML VIAL IVP SCH (07:32)
[2020-03-03] MEDS: SODIUM CHLORIDE 0.9% 1,000 ML IV SCH ×2 (07:33→20:08)
[2020-03-03 09:27] LABS: African American GFR (CKD) 134.7 (60.0-200.0); Anion Gap 6.1 mmol/L (4.00-12.00); BUN/Creat Ratio 28.57 Ratio (12.00-20.00); Calcium 8.8 mg/dL (8.7-10.3); Carbon Dioxide 25.9 mmol/L (21.6-31.8); Non-African American GFR(CKD) 116.3 (60.0-200.0); Potassium 3.9 mmol/L (3.5-5.5)
--- NOTE | 2020-03-03 13:53 | P.PN ---
Subjective 29-year-old the pleasant female came in with the complaints of pressure in the suprapubic area which is worsened pretty much by everything with movement with food. Patient pain was severe much better now. Patient was seen in urgent care and patient was told she has urinary tract infection and was started on nitrofurantoin patient does have fevers chills. Patient had CT of the abdomen which showed nephrolithiasis on the side with a 1 mm stone which is nonobstructive. Patient did complain of dysuria today morning. Patient urine is bit abnormal although patient is partially treated with nitrofurantoin she never had UTIs in the past and did not have any previous urine cultures from the past. Patient also had a fever and diarrhea. 03/03/2020 Patient leukocytosis resolved patient is a clinic and we will much better today with significant improved abdominal pain patient is afebrile. Patient is still having some dysuria. Patient will be continued on present antibiotics leukocytosis resolved. Constitutional: Denied any fatigue denied any fever. Cardio vascular: denied any chest pain, palpitations Gastrointestinal denied any nausea vomiting Pulmonary: Denied any shortness of breath cough Neurologic denied any new focal deficits All inpatient medications were reviewed and appropriate changes in these medications as dictated in the interval history and assessment and plan. Objective - Vital Signs Vital signs: Vital Signs Temp 98.2 F 03/03/20 07:00 Pulse 70 03/03/20 07:00 Resp 18 03/03/20 07:00 BP 107/65 03/03/20 07:00 Pulse Ox 98 03/03/20 07:00 Intake & Output 03/02/20 03/03/20 03/03/20 18:59 06:59 18:59 Intake Total 800 Balance 800 Intake: IV 800 Sodium Chloride 0.9% 1, 800 000 ml @ 100 mls/hr IV . Q10H [facility] Rx#:[id number] Other: # Voids 3 2 - Exam PHYSICAL EXAMINATION: GENERAL: The patient is alert and oriented x3, not in any acute distress. Well developed, well nourished. HEENT: Pupils are round and equally reacting to light. EOMI. No scleral icterus. No conjunctival pallor. Normocephalic, atraumatic. No pharyngeal erythema. No thyromegaly. CARDIOVASCULAR: S1 and S2 present. No murmurs, rubs, or gallops. PULMONARY: Chest is clear to auscultation, no wheezing or crackles. ABDOMEN: Soft, nontender, nondistended, normoactive bowel sounds. No palpable organomegaly. MUSCULOSKELETAL: No joint swelling or deformity. EXTREMITIES: No cyanosis, clubbing, or pedal edema. NEUROLOGICAL: Gross neurological examination did not reveal any focal deficits. SKIN: No rashes. - Labs CBC & Chem 7: 03/03/20 06:25 03/03/20 06:25 Labs: Abnormal Lab Results - Last 24 Hours (Table) 03/03/20 03/03/20 Range/Units 06:25 06:25 RBC 3.68 L (3.80-5.40) m/uL Hgb 11.3 L (11.4-16.0) gm/dL BUN/Creatinine Ratio 28.57 H (12.00-20.00) Ratio Microbiology - Last 24 Hours (Table) 03/01/20 23:53 Urine Culture - Final Urine,Clean Catch Assessment and Plan Plan: -Sepsis: Secondary to urinary tract infection, continue with 2 g of Rocephin continue with IV fluids -Nephrolithiasis 1 mm did not require any surgical intervention. -diarrhea secondary to infection -Ruled out Covid -Leukocytosis due to assessment 1 -DVT prophylaxis early ambulation -GI prophylaxis with Protonix
--- NOTE | 2020-03-03 23:21 | PN ---
PROGRESS NOTE DATE OF SERVICE: 03/03/2020 REASON FOR FOLLOWUP: Pyelonephritis. INTERVAL HISTORY: The patient is currently afebrile. The patient is feeling better. Abdominal pain has improved. Still complaining of urinary burning and constant urine. No chest pain, shortness of breath or cough and no diarrhea. PHYSICAL EXAMINATION: Blood pressure 117/69 with a pulse of 81, temperature 98.2. She is 97% on room air. General description is a middle-aged female lying in bed in no distress. RESPIRATORY SYSTEM: Unlabored breathing, clear to auscultation anteriorly. HEART: S1, S2. Regular rate and rhythm. ABDOMEN: Soft, no tenderness. LABS: Hemoglobin 11.3, white count 9.2, creatinine 0.7. DIAGNOSTIC IMPRESSION AND PLAN: Patient admitted to the hospital with fever, abdominal pain, positive UA and concern for pyelonephritis. CT of abdomen and pelvis did show some left-sided small stone but no other abnormality. Patient clinically responded to Rocephin to continue. Finish therapy with short course of oral Ceftin and close outpatient followup. MMODL / IJN: [id number] /
[2020-03-04] MEDS: KETOROLAC 15 MG/ML 1 ML VIAL IVP SCH ×2 (05:53→11:49)
[2020-03-04] MEDS: PANTOPRAZOLE 40 MG/10 ML VIAL IVP SCH (07:15)
[2020-03-04] MEDS: ENOXAPARIN 40 MG/0.4 ML SYRINGE SQ SCH (07:15)
[2020-03-04] MEDS: NYSTATIN 100,000 UNIT/GM POWD 15 GM TOPICAL SCH (07:15)
[2020-03-04] MEDS: SODIUM CHLORIDE 0.9% 1,000 ML IV SCH (07:15)
[2020-03-04 08:29] VITALS: BP 129/78; PULSE 69; RESP 17; TEMP 98
--- NOTE | 2020-03-04 16:05 | P.DS ---
Providers Date of admission: 03/02/20 02:03 Attending physician: Mark Lucas Consults: 03/02/20 02:02 Consult Physician Routine Consulting Provider: Ayla Barreto Consult Reason/Comments: roCOVID Do you want consulting provider notified?: Yes Primary care physician: Stated None Hospital Course: 29-year-old the pleasant female came in with the complaints of pressure in the suprapubic area which is worsened pretty much by everything with movement with food. Patient pain was severe much better now. Patient was seen in urgent care and patient was told she has urinary tract infection and was started on nitrofurantoin patient does have fevers chills. Patient had CT of the abdomen which showed nephrolithiasis on the side with a 1 mm stone which is nonobstructive. Patient did complain of dysuria today morning. Patient urine is bit abnormal although patient is partially treated with nitrofurantoin she never had UTIs in the past and did not have any previous urine cultures from the past. Patient also had a fever and diarrhea. 03/03/2020 Patient leukocytosis resolved patient is a clinic and we will much better today with significant improved abdominal pain patient is afebrile. Patient is still having some dysuria. Patient will be continued on present antibiotics leukocytosis resolved. 03/04/2020 Patient is clinically doing much better today patient is afebrile will be discharged today on Ceftin for 7 more days PHYSICAL EXAMINATION: GENERAL: The patient is alert and oriented x3, not in any acute distress. Well developed, well nourished. HEENT: Pupils are round and equally reacting to light. EOMI. No scleral icterus. No conjunctival pallor. Normocephalic, atraumatic. No pharyngeal erythema. No thyromegaly. CARDIOVASCULAR: S1 and S2 present. No murmurs, rubs, or gallops. PULMONARY: Chest is clear to auscultation, no wheezing or crackles. ABDOMEN: Soft, nontender, nondistended, normoactive bowel sounds. No palpable organomegaly. MUSCULOSKELETAL: No joint swelling or deformity. EXTREMITIES: No cyanosis, clubbing, or pedal edema. NEUROLOGICAL: Gross neurological examination did not reveal any focal deficits. SKIN: No rashes. Assessment and Plan Plan: -Sepsis: Secondary to urinary tract infection, continue with 2 g of Rocephin improved now -Nephrolithiasis 1 mm. -diarrhea secondary to infection -Ruled out Covid -Leukocytosis due to assessment 1 Patient Condition at Discharge: Fair Plan - Discharge Summary Discharge Rx Participant: No New Discharge Prescriptions: New Cefuroxime Axetil [Ceftin] 500 mg PO BID 7 Days #14 tab Discontinued Nitrofurantoin Macrocrystal [Nitrofurantoin] 100 mg PO Q12H No Action Ibuprofen [Motrin Ib] 400 mg PO ONCE PRN PRN Reason: Fever And/ Or Pain Discharge Medication List Ibuprofen [Motrin Ib] 400 mg PO ONCE PRN 03/01/20 [History] Cefuroxime Axetil [Ceftin] 500 mg PO BID 7 Days #14 tab 03/04/20 [Rx] Follow up Appointment(s)/Referral(s): None,Stated [Primary Care Provider] - 1-2 days Patient Instructions/Handouts: Kidney Stones (DC), Urinary Tract Infection in Women (DC) Discharge Disposition: HOME SELF-CARE
--- NOTE | 2020-03-04 17:11 | PN ---
PROGRESS NOTE DATE OF SERVICE: 03/04/2020 REASON FOR FOLLOWUP: Urinary intact infection. INTERVAL HISTORY: The patient was seen on rounds earlier this afternoon. The patient has been afebrile. She was breathing comfortably. The patient denies having any chest pain or shortness of breath or cough. No nausea or vomiting. No abdominal pain or diarrhea. PHYSICAL EXAMINATION: Blood pressure 129/70 with a pulse of 69, temperature 98. She is 98% on room air. General description is a middle-aged female lying in bed in no distress. RESPIRATORY SYSTEM: Unlabored breathing. Clear to auscultation anteriorly. HEART: S1, S2. Regular rate and rhythm. ABDOMEN: Soft. No tenderness. LABS: No new labs have been obtained today. DIAGNOSTIC IMPRESSION AND PLAN: Patient admitted to hospital with abdominal pain, concern for urinary tract infection. Did have positive UA. Overall improvement on Rocephin. She will finish a short course of oral Ceftin. Continue supportive care. MMODL / IJN: [id number] /
== END 2020-03-04 12:55 | disposition home or self-care (01) ==
LOC: EC 22:01 → 4SSUR 03-02 02:03 → INTOOBSV 03-02 02:03 → 4SSUR 03-02 03:17 → UNDODISIN 03-04 12:55
PROVIDERS: ADMIT Hospitalist; ATTEND Hospitalist
DX: A41.9 Sepsis, unspecified organism (principal); N39.0 Urinary tract infection, site not specified; N20.0 Calculus of kidney; Z20.828 Contact with and (suspected) exposure to other viral communicable diseases; Z90.89 Acquired absence of other organs; Z88.0 Allergy status to penicillin
CPT/HCPCS: 96376 ×4; 96361 ×2; 96366 ×4; 96372 ×3; 96375 ×3; 96365; 99285; 36415; 94760; 93005; 80053; 80048; 82728; 83605; 83615; 83690; 83735 ×2; 84100; 85025; 85027; 86140; 81001; 81025; 87086; 87635; 71045; 74177; G0378 ×3; J2270 ×2; J2405; J0696 ×3; J1650 ×3; J1885 ×4; C9113 ×3; Q9967

== ENCOUNTER 2023-09-12 09:28 | Outpatient (CLI) | payer OTHER ==
[2023-09-12 10:55] LABS: Appearance,Urine Cloudy (Clear); Bacteria,Urine Occasional /hpf; Bilirubin,Urine 1+ (Negative); Blood,Urine Negative (Negative); Color,Urine Yellow; Glucose,Urine (UA) Negative (Negative); Ketones,Urine 1+ (Negative); Leukocyte Esterase,Urine Trace (Negative); Mucus,Urine Many /hpf; Nitrite,Urine Negative (Negative); Protein,Urine 1+ (Negative); RBC,Urine 1 /hpf (0-5); Specific Gravity,Urine 1.034 (1.001-1.035); Squamous Epithelial Cell,Urine 3 /hpf (0-4); WBC,Urine 4 /hpf (0-5)
[2023-09-12 11:18] LABS: Basophils % (A) 0 %; Eosinophils # (A) 0.1 k/uL (0-0.7); Eosinophils % (A) 1 %; HCT 30.9 % (34.0-46.0); HGB 10.4 gm/dL (11.4-16.0); Hypochromasia Slight; Lymphocytes # (A) 1.3 k/uL (1.0-4.8); Lymphocytes % (A) 12 %; MCH 27.6 pg (25.0-35.0); MCHC 33.7 g/dL (31.0-37.0); Mean Platelet Volume 8.5; Monocytes # (A) 0.5 k/uL (0-1.0); Monocytes % (A) 4 %; Neutrophils # (A) 8.6 k/uL (1.3-7.7); Neutrophils % (A) 80 %; Platelet Count 263 k/uL (150-450); RBC 3.77 m/uL (3.80-5.40); RDW 15.5 % (11.5-15.5); WBC 10.8 k/uL (3.8-10.6)
[2023-09-12 11:35] LABS: ALT 20 U/L (4-34); AST 34 U/L (14-36); African American GFR (CKD) >90 (>60 ml/min/1.73 sqM); Blood Urea Nitrogen 10 mg/dL (7-17); LDH 156 U/L (120-246); Non-African American GFR(CKD) >90 (>60 ml/min/1.73 sqM); Uric Acid 5.9 mg/dL (3.7-7.4)
[2023-09-12 12:37] LABS: Creatinine,Urine Random 381.2 mg/dL
[2023-09-12 12:38] VITALS: BP 128/76; PULSE 87; RESP 16; TEMP 96.3
== END 2023-09-12 12:45 | disposition home or self-care (01) ==
LOC: FBPOP 09:28
PROVIDERS: ATTEND Obstetrics & Gynecology
DX: O13.3 Gestational [pregnancy-induced] hypertension without significant proteinuria, third trimester (principal); Z3A.37 37 weeks gestation of pregnancy; Z88.0 Allergy status to penicillin
CPT/HCPCS: 59025; 81001; 82565; 82570; 83615; 84156; 84450; 84460; 84520; 84550; 85025

== ENCOUNTER 2023-09-19 11:44 | Inpatient (IN) | payer OTHER ==
[2023-09-19] MEDS ORDERED: TRANEXAMIC 1,000 MG/100ML-NACL 1,000 MG in EMPTY BAG 1 BAG IV PRN (12:06)
[2023-09-19] MEDS ORDERED: LIDOCAINE 0.5% (PF) 5 MG/ML (50 ML SDV) SQ PRN (12:06)
[2023-09-19] MEDS ORDERED: OXYTOCIN 10 UNIT/ML 1 ML VIAL IM PRN (12:06)
[2023-09-19] MEDS ORDERED: miSOPROStoL 200 MCG TAB PO PRN (12:06)
[2023-09-19] MEDS ORDERED: METHYLERGONOVINE 0.2 MG/ML 1 ML AMP IM PRN (12:06)
[2023-09-19] MEDS ORDERED: TERBUTALINE 1 MG/ML VIAL SQ PRN (12:06)
[2023-09-19] MEDS ORDERED: CARBOPROST TROMETHAMINE 250 MCG/ML 1 ML AMP IM PRN (12:06)
[2023-09-19 12:44] LABS: Basophils % (A) 0 %; Eosinophils # (A) 0.1 k/uL (0-0.7); Eosinophils % (A) 1 %; HCT 33.1 % (34.0-46.0); HGB 10.5 gm/dL (11.4-16.0); Hypochromasia Slight; Lymphocytes # (A) 1.2 k/uL (1.0-4.8); Lymphocytes % (A) 12 %; MCH 25.5 pg (25.0-35.0); MCHC 31.7 g/dL (31.0-37.0); MCV 80.3 fL (80.0-100.0); Mean Platelet Volume 9.1; Monocytes # (A) 0.6 k/uL (0-1.0); Monocytes % (A) 6 %; Neutrophils # (A) 7.9 k/uL (1.3-7.7); Neutrophils % (A) 79 %; Platelet Count 315 k/uL (150-450); RBC 4.12 m/uL (3.80-5.40); RDW 15.2 % (11.5-15.5)
[2023-09-19] MEDS: LACTATED RINGERS 1,000 ML IV SCH (13:05)
[2023-09-19 13:06] LABS: ALT 21 U/L (4-34); AST 30 U/L (14-36); African American GFR (CKD) >90 (>60 ml/min/1.73 sqM); Blood Urea Nitrogen 11 mg/dL (7-17); LDH 167 U/L (120-246); Non-African American GFR(CKD) >90 (>60 ml/min/1.73 sqM); Uric Acid 5.6 mg/dL (3.7-7.4)
[2023-09-19] MEDS: OXYTOCIN 30 UNITS/500 ML NS 30 UNIT in SALINE 1 500ML.BAG IV SCH (13:07)
[2023-09-19 13:14] LABS: Appearance,Urine Cloudy (Clear); Bacteria,Urine Rare /hpf; Bilirubin,Urine 1+ (Negative); Blood,Urine Negative (Negative); Calcium Oxalate Crystals,Urine Many /hpf; Color,Urine Dark Brown; Glucose,Urine (UA) Trace (Negative); Ketones,Urine Trace (Negative); Leukocyte Esterase,Urine Negative (Negative); Mucus,Urine Many /hpf; Nitrite,Urine Negative (Negative); Protein,Urine 2+ (Negative); Specific Gravity,Urine 1.039 (1.001-1.035); Squamous Epithelial Cell,Urine 3 /hpf (0-4); WBC,Urine 4 /hpf (0-5)
--- NOTE | 2023-09-19 13:15 | P.HPOB ---
History of Present Illness H&P Date: 09/19/23 Chief Complaint: Gestaional hypertension Ms. France is a 33 year old at 38 weeks gestation with EDC of 10/03/2023 by LMP consistent with a 16 week US who presents for medical induction of labor for gestational hypertension diagnosed in the office today. PIH labs and urine are pending. THe has otherwise been uncomplicated. The fetus is estimated in the 27%ile by a 32 week utlrasound. Obstetric history: 3FTVD all complicated by gHTN work-up: blood type O positive, antibody screen negative, rubella immune, VDRL non-reactive, HBsAg negative, HIV negative, HCV Ab negative, gonorrhea negative, chlamydia negative, 1 hour GTT wnl, GBS negative. s/p Tdap in 3rd trimester. Past Medical History Past Medical History: No Reported History History of Any Multi-Drug Resistant Organisms: None Reported Past Surgical History: Appendectomy Past Anesthesia/Blood Transfusion Reactions: No Reported Reaction Past Psychological History: No Psychological Hx Reported Smoking Status: Former smoker Past Alcohol Use History: None Reported Past Drug Use History: None Reported - Past Family History Mother History Unknown: Yes Family Medical History: Cancer, Hypertension Medications and Allergies Home Medications Medication Instructions Recorded Confirmed Type Vit No.179/Iron/Folic 1 each PO DAILY 06/07/23 09/19/23 History [ Tablet] RX: Aspirin 81 mg PO DAILY 06/07/23 09/19/23 History Allergies Allergy/AdvReac Type Severity Reaction Status Date / Time Penicillins Allergy Rash/Hives Verified 09/19/23 12:04 Exam Vital Signs Temp Pulse Resp BP Pulse Ox 09/19/23 12:03 97.3 F L 98 16 140/83 98 Intake and Output 09/18/23 09/19/23 09/19/23 22:59 06:59 14:59 Other: Weight 123.831 kg Focused physical exam is performed. This is a healthy-appearing in no apparent distress. Breathing is non-labored. Abdomen is gravid and non-tender. Cervical exam is 2 cm, 60 effacement, -3 station. AROM is undertaken with clear fluid noted. Extremities non-tender and non-edematous. heart tones are Category I and tocometer is graphing irregular contractions. Results Result Diagrams: 09/19/23 12:12 09/19/23 12:12 Abnormal Lab Results - Last 24 Hours (Table) 09/19/23 09/19/23 Range/Units 12:12 12:12 Hgb 10.5 L (11.4-16.0) gm/dL Hct 33.1 L (34.0-46.0) % Neutrophils # 7.9 H (1.3-7.7) k/uL Creatinine 0.47 L (0.52-1.04) mg/dL Assessment and Plan Assessment: 33 year old at 38 weeks with gestational hypertension presents for medical IOL Plan: Admit, clear liquid diet, pitocin per protocol, s/p AROM, epidural prn, continuous EFM and tocometer, close monitoring of patient. Anticipate vaginal delivery.
[2023-09-19 14:05] LABS: Protein/Creatinine Ratio,Urine 0.026
[2023-09-19] MEDS ORDERED: diphenhydrAMINE 25 MG CAP PO PRN (20:19)
[2023-09-19] MEDS ORDERED: LANOLIN CREAM 1 GM TUBE TOPICAL PRN (20:19)
[2023-09-19] MEDS ORDERED: ZOLPIDEM 5 MG TAB PO PRN (20:19)
[2023-09-19] MEDS ORDERED: HYDROCORTISONE 2.5% RECTAL CREAM 30 GM TUBE RECTAL PRN (20:19)
[2023-09-19] MEDS ORDERED: diphenhydrAMINE 50 MG CAP PO PRN (20:19)
[2023-09-19] MEDS ORDERED: diphenhydrAMINE 50 MG/ML 1 ML VIAL IVP PRN ×2 (20:19)
[2023-09-19] MEDS ORDERED: BENZOCAINE/MENTHOL SPRAY 1 GM/SPRAY AEROSOL TOPICAL PRN (20:19)
[2023-09-19] MEDS ORDERED: SIMETHICONE 80 MG CHEWABLE PO PRN (20:19)
--- NOTE | 2023-09-19 20:19 | P.PROBDLV ---
Vaginal Delivery Note - . Vaginal Delivery Note: DATE OF SERVICE: 09/19/2023 PROCEDURE: Normal Vaginal Delivery ATTENDING: Dr. Madison Galeas MD ESTIMATED BLOOD LOSS: 200 mL FINDINGS: VMI, Apgars 8/9. Weight 6 pounds and 6 ounces (2895 grams) PROCEDURE: Ms. France is a 33 year old at 38 weeks presenting to labor and delivery as a direct admission from office for gestational hypertension. The has been otherwise uncomplicated. For further details, please review the admitting H&P. Pitocin was started per protocol. AROM was performed at 1250 revealing clear amniotic fluid. The patient received epidural anesthesia per her request. The patient was completely dilated at 1958. The patient brought the head to a crown with 2 pushes. With a third push, she delivered the head. One nuchal cord was easily reduced. A viable male was delivered at 2005. The infant was placed on the maternal abdomen and bulb suctioned. The infant was noted to be spontaneously crying. Cord was clamped and cut after a 1- minute delay. The infant was handed off to the pediatric team. Placenta was delivered whole with gentle cord traction at 2008. Oxytocin was started to facilitate uterine tone. Uterine fundus was found to be firm and below the umbilicus upon fundal massage. Thorough examination of the cervix, vagina, periurethral area, and perineum revealed no lacerations. The patient is stable and allowed to begin the bonding process.
[2023-09-20] MEDS: IBUPROFEN 600 MG TAB PO PRN (04:15)
[2023-09-20] MEDS: ROPIVACAINE 225 MG, fentaNYL (PF). 450 MCG in SODIUM CHLORIDE 0.9% 171 ML EPIDURAL ONE (05:32)
[2023-09-20 06:52] LABS: Basophils % (A) 0 %; Eosinophils # (A) 0.1 k/uL (0-0.7); Eosinophils % (A) 1 %; HCT 31.4 % (34.0-46.0); HGB 9.8 gm/dL (11.4-16.0); Hypochromasia Slight; Lymphocytes # (A) 1.4 k/uL (1.0-4.8); Lymphocytes % (A) 11 %; MCH 25.5 pg (25.0-35.0); MCHC 31.3 g/dL (31.0-37.0); MCV 81.7 fL (80.0-100.0); Mean Platelet Volume 9.2; Monocytes # (A) 0.9 k/uL (0-1.0); Monocytes % (A) 7 %; Neutrophils # (A) 10.2 k/uL (1.3-7.7); Neutrophils % (A) 80 %; Platelet Count 240 k/uL (150-450); RBC 3.84 m/uL (3.80-5.40); RDW 15.6 % (11.5-15.5); WBC 12.7 k/uL (3.8-10.6)
[2023-09-20] MEDS: ACETAMINOPHEN TAB 325 MG TAB PO PRN (07:23)
[2023-09-20] MEDS: SENNOSIDES-DOCUSATE SODIUM 1 EACH TAB PO SCH (08:12)
--- NOTE | 2023-09-20 08:30 | P.DS ---
Providers Date of admission: 09/19/23 11:44 Expected date of discharge: 09/20/23 Attending physician: Madison Galeas MD Primary care physician: Stated None Hospital Course: Ms. France is a 33 year old now PPD#1 s/p normal vaginal delivery after medical induction of labor for gestational hypertension. The patient is doing well this morning and had no acute events overnight. She has no complaints this morning. She reports minimal lochia, passing flatus, voiding without difficulty, ambulating, and eating/drinking without nausea or vomiting. Infant doing well at bedside, s/p circumcision. She denies chest pain, shortness of breathing, fevers, or chills overnight. She denies pain or swelling in the legs. restrictions are reviewed with the patient including pelvic rest for 6 weeks. The patient is encouraged to call the office if she experiences any heavy bleeding, foul-smelling discharge, breast complaints, or any if she has any other concerns. She will follow up in the office in weeks for blood pressure check. She plans to use OTC Motrin and Tylenol as needed for pain. All questions are answered. Assessment: 33 year old s/p normal vaginal delivery after IOL for gHTN Patient Condition at Discharge: Good Plan - Discharge Summary Discharge Rx Participant: No New Discharge Prescriptions: No Action Aspirin 81 mg PO DAILY Vit No.179/Iron/Folic [ Tablet] 1 each PO DAILY Discharge Medication List Aspirin 81 mg PO DAILY 06/07/23 [History] Vit No.179/Iron/Folic [ Tablet] 1 each PO DAILY 06/07/23 [History] Follow up Appointment(s)/Referral(s): Madison Galeas MD [STAFF PHYSICIAN] - 1 Week Activity/Diet/Wound Care/Special Instructions: Instructions 1. Do not begin any exercise program for 3 weeks. 2. Do not resume sexual relations for 6 weeks or longer if uncomfortable. 3. You may take tub baths or showers at any time. 4. You may use tampons if desired after 6 weeks. 5. Keep any areas repaired with stitches clean and dry. 6. If you are not nursing, wear a good fitting, supportive bra during the day and limit fluid intake for at least 1 week to prevent breast engorgement. 7. Call the office, , within the next week to make appointment for your 6 week checkup if it has not already been made. 8. Report any of the following occurrences to the doctor promptly: a. Heavy, excessive bleeding b. Chills, fever c. Burning or frequency of urination d. Pain or redness and breasts if nursing e. Increasing pain or swelling of vulva (stitches). In addition to the above instructions, the following additional should be followed: 1. No heavy lifting or straining (exercising) until after 6 week checkup. 2. Keep abdominal incision clean and dry: You may wear a dressing if more c omfortable. 3. Make office appointment for 2 weeks after delivery date. Discharge Disposition: HOME SELF-CARE
[2023-09-20 16:33] VITALS: BP 130/85; PULSE 76; RESP 18; TEMP 98
== END 2023-09-20 20:15 | disposition home or self-care (01) | DRG 560 ==
LOC: 4FBP 11:44
PROVIDERS: ADMIT Obstetrics & Gynecology; ATTEND Obstetrics & Gynecology
PROC: 10907ZC Drainage of Amniotic Fluid, Therapeutic from Products of Conception, Via Natural or Artificial Opening (ICD-10-PCS; principal; 2023-09-19)
PROC: 3E033VJ Introduction of Other Hormone into Peripheral Vein, Percutaneous Approach (ICD-10-PCS; principal; 2023-09-19)
PROC: 10E0XZZ Delivery of Products of Conception, External Approach (ICD-10-PCS; principal; 2023-09-19)
DX: O13.4 Gestational [pregnancy-induced] hypertension without significant proteinuria, complicating childbirth (principal); O69.81X0 Labor and delivery complicated by cord around neck, without compression, not applicable or unspecified; Z37.0 Single live birth; Z3A.38 38 weeks gestation of pregnancy; Z79.82 Long term (current) use of aspirin; Z87.891 Personal history of nicotine dependence
CPT/HCPCS: 81001; 82565; 82570; 83615; 84156; 84450; 84460; 84520; 84550; 85025; 86850; 86900; 86901